=== PATIENT | female | born 1985 | race Caucasian/White ===

== ENCOUNTER 2017-10-30 14:25 | Emergency (ER) | payer OTHER, BC ==
[2017-10-30 14:50] VITALS: BP 149/70; PULSE 76; RESP 18; TEMP 98.1
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
[2017-10-30] MEDS ORDERED: CYCLOBENZAPRINE 10MG STARTER 3 TAB BTL PO STA (15:33)
[2017-10-30] MEDS ORDERED: IBUPROFEN 600 MG STARTER PACK 4 TAB BTL PO STA (15:33)
== END 2017-10-30 15:51 | disposition home or self-care (01) ==
LOC: EC 14:25
DX: S16.1XXA Strain of muscle, fascia and tendon at neck level, initial encounter (principal); R51 Headache; M25.561 Pain in right knee; M25.529 Pain in unspecified elbow; V43.52XA Car driver injured in collision with other type car in traffic accident, initial encounter; Y92.410 Unspecified street and highway as the place of occurrence of the external cause
CPT/HCPCS: 70450; 72125; 99284

== ENCOUNTER → 2023-02-11 | Outpatient (CLI) | payer OTHER ==
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
== END | disposition home or self-care (01) ==
LOC: RADCTMAIN 15:16
PROVIDERS: ATTEND Family Medicine
DX: R68.84 Jaw pain (principal); R22.0 Localized swelling, mass and lump, head
CPT/HCPCS: 70486

== ENCOUNTER → 2024-09-10 | Outpatient (CLI) | payer OTHER ==
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
== END | disposition home or self-care (01) ==
LOC: RADCTMAIN 12:42
PROVIDERS: ATTEND Family Medicine
DX: R68.84 Jaw pain (principal)
CPT/HCPCS: 70486